=== PATIENT | female | born 1960 | race Caucasian/White ===

== ENCOUNTER 2019-02-12 10:55 | Outpatient (CLI) | payer BC ==
--- NOTE | 2019-02-12 11:15 | RAD ---
Radiograph left humerus 2 views: 02/12/2019 HISTORY: 58-year-old female with left arm pain. Malignant neoplasm of breast. FINDINGS: No permeative, osteolytic, or osteoblastic lesion. No periostitis. No fracture. Osteopenia. Surgical clips at axilla. IMPRESSION: 1. Osteopenia. 2. Left axillary lymph node dissection. 3. Otherwise negative.
--- NOTE | 2019-02-12 11:16 | RAD ---
Radiograph left shoulder 3 views: DATE: 02/12/2019 HISTORY: 58-year-old female with left breast cancer and left shoulder pain. FINDINGS: Left axillary surgical clips. No fracture, subluxation, or dislocation. Mild-moderate DJD at AC joint . Unremarkable glenohumeral joint. No destructive osseous lesion identified. IMPRESSION: 1. Mild-moderate osteoarthrosis of acromioclavicular joint. 2. Status post left axillary lymph node dissection. 3. Otherwise negative.
== END 2019-02-12 10:56 | disposition home or self-care (01) ==
LOC: BICRAD 10:55
PROVIDERS: ATTEND Internal Medicine Hematology & Oncology
DX: C50.212 Malignant neoplasm of upper-inner quadrant of left female breast (principal); M25.512 Pain in left shoulder; M79.602 Pain in left arm; M19.012 Primary osteoarthritis, left shoulder; Z98.890 Other specified postprocedural states; M85.80 Other specified disorders of bone density and structure, unspecified site

== ENCOUNTER 2019-06-18 13:43 | Outpatient (CLI) | payer BC ==
--- NOTE | 2019-06-18 14:16 | MMO ---
Right Breast MAMMO Unilat Diag DDI RT. CLINICAL HISTORY: Patient is 58 years old and is seen for diagnostic exam. The patient has no family history of breast cancer. The patient has a history of left Ultrasound Guided Core Biopsy in May, - invasive ductal carcinoma, left Mastectomy in May, - malignant and left Lumpectomy in April, - malignant. VIEWS: The views performed were: right craniocaudal with tomosynthesis; right mediolateral oblique with tomosynthesis; and right mediolateral with tomosynthesis. FILMS COMPARED: The present examination has been compared to prior imaging studies performed at [facility] on 05/14/2016, 05/17/2016, 06/03/2017 and 06/05/2018. This study has been interpreted with the assistance of computer-aided detection. MAMMOGRAM FINDINGS: There are scattered fibroglandular densities. There are stable benign appearing calcifications seen in the right breast. There are no suspicious masses, suspicious calcifications, or new areas of architectural distortion. IMPRESSION: THERE IS NO MAMMOGRAPHIC EVIDENCE OF MALIGNANCY. A ROUTINE FOLLOW-UP MAMMOGRAM IN 1 YEAR IS RECOMMENDED. THE RESULTS OF THIS EXAM WERE SENT TO THE PATIENT. ACR BI-RADS Category 2 - Benign finding MAMMOGRAPHY NOTE: 1. A negative mammogram report should not delay a biopsy if a dominant of clinically suspicious mass is present. 2. Approximately 10% to 15% of breast cancers are not detected by mammography. 3. Adenosis and dense breasts may obscure an underlying neoplasm. Reported by: AUTUMN ALAN MD Electonically Signed: [id number]
== END 2019-06-18 13:44 | disposition home or self-care (01) ==
LOC: BICMAMMO 13:43
PROVIDERS: ATTEND Internal Medicine Hematology & Oncology
DX: Z08 Encounter for follow-up examination after completed treatment for malignant neoplasm (principal); Z85.3 Personal history of malignant neoplasm of breast

== ENCOUNTER 2020-05-27 09:26 | Outpatient (CLI) | payer BC, OTHER ==
[2020-05-27 14:20] LABS: #Basophils 0.1 thou/uL (0.0-0.2); #Eosinphils 0.1 thou/uL (0.0-0.7); #Lymphocytes 2.4 thou/uL (1.20-3.40); #Monocytes 0.7 thou/uL (0.11-0.59); #Neutrophils 7.6 thou/uL (1.40-6.50); %Basophils 0.7 % (0.0-1.0); %Lymphocytes 21.9 % (21.0-51.0); %Monocytes 6.5 % (0.0-10.0); %Neutrophils 69.9 % (42.0-75.0); Hemoglobin 13.9 g/dL (12.0-16.0); Mean Corpuscular HGB CONC 32.9 g/dL (32.0-36.0); Mean Corpuscular Hemoglobin 31.1 pg (27.0-31.0); Mean Corpuscular Volume 94.3 fL (78.0-98.0); Mean Platelet Volume 8.5 fL (7.4-10.4); Platelet Count 308 thou/uL (130-400); RBC Distribution Width 11.2 % (11.5-14.5); Red Blood Cell (RBC) Count 4.48 mill/uL (4.20-5.40); White Blood Cell (WBC) Count 10.9 thou/uL (4.8-10.8)
[2020-05-27 14:42] LABS: ALT (SGPT) 21 U/L (8-55); AST (SGOT) 20 U/L (5-34); Albumin 4.5 g/dL (3.5-5.0); Alkaline Phosphatase 91 U/L (40-110); Anion Gap 15 mmol/L (10-20); BUN (Urea Nitrogen) 14 mg/dL (9.8-20.1); Bilirubin, Total 0.3 mg/dL (0.2-1.2); Calc. Creatinine Clearance 0 mL/min (70-130); Calcium 9.5 mg/dL (7.8-10.44); Carbon Dioxide 23 mmol/L (22-29); Chloride 107 mmol/L (98-107); Estimated GFR-MDRD 67; Globulin 2.3 g/dL (2.4-3.5); Glucose 114 mg/dL (70-105); Potassium 4.4 mmol/L (3.5-5.1); Protein, Total 6.8 g/dL (6.0-8.3); Sodium 141 mmol/L (136-145)
[2020-05-28 11:58] LABS: SARS-CoV-2 MS2 Positive; SARS-CoV-2 N Gene Negative; SARS-CoV-2 S Gene Negative; SARS-CoV-2 by NAA Not Detected (NotDetected); SARS-CoV-2 orf1ab Negative
== END 2020-05-27 09:27 | disposition home or self-care (01) ==
LOC: LABBT 09:26
PROVIDERS: ATTEND Surgery
DX: Z01.812 Encounter for preprocedural laboratory examination (principal); Z20.828 Contact with and (suspected) exposure to other viral communicable diseases; C50.912 Malignant neoplasm of unspecified site of left female breast
CPT/HCPCS: 80053; 85025; 87635; U0003

== ENCOUNTER 2020-05-30 05:51 | Day surgery (SDC) | payer BC ==
[2020-05-28 10:58] VITALS: BMI 25.0
[2020-05-30] MEDS ORDERED: Lidocaine 2% PF 5 ML VIAL ONE (07:37)
[2020-05-30] MEDS ORDERED: Bupivacaine HCl 0.5%/Epinephrine 1:200,000/PF 30 ml Vial ONE (07:37)
[2020-05-30] MEDS ORDERED: Fentanyl 100 MCG/2 ML VIAL ONE (07:44)
[2020-05-30] MEDS ORDERED: Midazolam HCl 2 mg/2 ml Vial ONE (07:44)
[2020-05-30] MEDS ORDERED: PROPOFOL 200 MG/20 ML VIAL ONE (14:03)
[2020-05-30] MEDS ORDERED: Dexamethasone 20 MG/5 ML VIAL ONE (14:03)
[2020-05-30] MEDS ORDERED: diphenhydrAMINE 50 MG/ML VIAL ONE (14:03)
[2020-05-30] MEDS ORDERED: Ketorolac Tromethamine 30 MG/ML VIAL ONE (14:03)
[2020-05-30] MEDS ORDERED: Ondansetron PF 4 MG/2 ML Vial ONE (14:03)
--- NOTE | 2020-06-01 07:35 | OP ---
DATE OF PROCEDURE: 05/30/2020 PREOPERATIVE DIAGNOSIS: Left breast cancer, chest wall recurrence. PROCEDURE PERFORMED: Wide local excision. INDICATIONS: A 59-year-old female who had undergone a left mastectomy for a high-grade invasive ductal carcinoma in 2016, who developed a recurrent nodule on the chest wall. She underwent a biopsy, thought was to be an excisional biopsy in the office, which came back with positive medial and lateral margins of high-grade poorly differentiated adenocarcinoma. FINDINGS: Tried to get a minimum of 2 cm margins medial and lateral, so the specimen was 4 cm wide x 10 cm long to include muscle deep. DESCRIPTION OF PROCEDURE: After informed consent was obtained, the patient was taken to the operating room and given general endotracheal anesthesia. She was placed in supine position. Her chest wall was prepped and draped in usual fashion. Local anesthesia was infiltrated subcutaneously and deep with 0.5% Marcaine. A wide elliptical incision was performed to include 2 cm medial and lateral as well as to excise the scar to include the muscle deep with electrocautery that was attached to the specimen. The specimen was marked with a suture superior. Hemostasis was achieved with electrocautery. Undermining was performed on the muscle to facilitate closure. The subcu was reapproximated with interrupted 2-0 Vicryl and the skin closed with interrupted vertical mattress sutures of 3-0 Prolene. A sterile bandage applied. The patient tolerated the procedure well, transferred to Recovery in good condition. Sponge and needle count verified correct x2. Job ID: [id number]
--- NOTE | 2020-06-01 12:48 | EKG ---
Test Reason : Blood Pressure : / mmHG Vent. Rate : 073 BPM Atrial Rate : 073 BPM P-R Int : 128 ms QRS Dur : 076 ms QT Int : 394 ms P-R-T Axes : 058 022 062 degrees QTc Int : 434 ms Normal sinus rhythm Normal ECG No previous ECGs available Confirmed by ASHLEY CHOWDARY MD ([id number]) on 06/01/2020 12:48:18 PM Referred By: MEREDITH Confirmed By:ASHLEY CHOWDARY MD
== END 2020-05-30 10:58 | disposition home or self-care (01) ==
LOC: SDC 05:51
PROVIDERS: ATTEND Surgery
PROC: 0HB5XZZ Excision of Chest Skin, External Approach (ICD-10-PCS; principal; 2020-05-30)
DX: C50.912 Malignant neoplasm of unspecified site of left female breast (principal); E78.2 Mixed hyperlipidemia; F17.210 Nicotine dependence, cigarettes, uncomplicated; R05 Cough; Z79.899 Other long term (current) drug therapy
CPT/HCPCS: 88305; 93005; 93010; J0670; J0690; J1100; J1200; J1885; J2250; J2405; J2704; J3010

== ENCOUNTER 2020-06-02 08:23 | Outpatient (CLI) | payer BC ==
[2020-06-02] MEDS ORDERED: Iopamidol 370 76% 100 ML VIAL ONE (08:49)
--- NOTE | 2020-06-02 10:27 | CT ---
CHEST CT WITH CONTRAST ABDOMEN CT WITH CONTRAST PELVIC CT WITH CONTRAST: HISTORY: Recurrent breast cancer. Chemotherapy. Radiation therapy. CORRELATION: None. FINDINGS: Chest CT: Mediastinum: No mass, lymphadenopathy or hematoma. There is a nonspecific prevascular lymph node ananth uring 1.3 x 0.5 cm. Aorta: Normal caliber. No aneurysm, dissection or periaortic fat stranding. Minimal atherosclerosis. Heart: Normal heart size. No significant pericardial effusion. Pulmonary arteries: Central pulmonary arteries do not demonstrate a filling defect. Limited evaluatio n due to technique. Chest wall: Postsurgical changes compatible with a left lumpectomy. Lymph nodes: No evidence of left or right axillary lymphadenopathy. There are surgical clips in the l eft axilla. Trachea and central bronchi: Patent. Pleural spaces: No pleural effusion. Right lung: Dependent atelectatic changes. Minimal thickening and nodularity involving the major fiss ure. Left lung:Pleural-based densities and linear densities along the left upper lobe likely representing posttreatment change. Pneumothorax: None. Abdomen CT: Gallbladder: Unremarkable. Portal vein: Patent. Liver: 1.3 x 1.8 cm in segment 5 of the liver compatible with a vascular lesion. No enhancing masses in the liver. Hypodensity in the 6th segment of the liver measures 1 cm with an attenuation coefficient of 5 Hounsfield units, compatible with a cyst.. Spleen: Appropriate enhancement. Pancreas: Appropriate enhancement. Adrenal glands: Appropriate enhancement. Lymphadenopathy: No gastrohepatic, retrocrural or periportal lymphadenopathy. Kidneys: Symmetric enhancement. Bilaterally no obstructive uropathy. Mesentery: No mass, lymphadenopathy, free air or free fluid. Alimentary canal: Gastric mucosa, duodenum and multiple normal caliber small bowel loops. Normal ileo cecal junction. Scattered fecal material and contrast in a nondistended, nondilated colon. Short segment of decreased luminal diameter likely representing contractions rather than apple core lesions of the colon. Normal caliber appendix. Pelvis CT: Uterus is surgically absent. No pelvic mass, nephropathy, free air or free fluid. Urinary bladder ness s a normal appearance. Presacral fat is preserved. Osseous structures: No lytic or blastic lesions in the osseous structures. Sclerosis involving the inferior aspect of the T4, T5, T6, T7, T8 and T9 vertebral bodies likely representing degenerative change. IMPRESSION: 1. No evidence of metastatic disease in the chest, abdomen or pelvis. 2. Nonspecific prevascular lymph node. 3. Postsurgical changes involving the left breast and left axilla. Transcribed Date/Time: 06/02/2020 11:34 AM
--- NOTE | 2020-06-02 12:52 | NM ---
NUCLEAR MEDICINE BONE SCAN WHOLE BODY: (Skeletal scintigraphy) DATE: 06/02/2020 HISTORY: 59-year-old female with malignant neoplasm of upper inner quadrant of left female breast TECHNIQUE: IV injection of technetium 99m-MDP: 33.0 mCi 3 hour delayed whole body skeletal scintigraphy in anterior and posterior views. FINDINGS: There are no foci of asymmetrically increased uptake that are particularly suspicious for bone metast ases. IMPRESSION: No compelling evidence of skeletal metastasis.
== END 2020-06-02 08:24 | disposition home or self-care (01) ==
LOC: CT 08:23
PROVIDERS: ATTEND Internal Medicine Hematology & Oncology
DX: C50.212 Malignant neoplasm of upper-inner quadrant of left female breast (principal); Z98.890 Other specified postprocedural states
CPT/HCPCS: 71260; 74177; 78306; A9503; Q9967

== ENCOUNTER 2020-06-23 09:08 | Outpatient (CLI) | payer BC ==
--- NOTE | 2020-06-23 09:42 | MMO ---
Right Breast MAMMO Unilat Diag DDI RT+DAQUAN. CLINICAL HISTORY: Patient is 59 years old and is seen for diagnostic exam. The patient has no family history of breast cancer. The patient has a history of left Excisional Biopsy in May, - malignant, left Ultrasound Guided Core Biopsy in May, - invasive ductal carcinoma, left Mastectomy in May, - malignant and left Lumpectomy in April, - malignant. VIEWS: The views performed were: right craniocaudal with tomosynthesis; right mediolateral oblique with tomosynthesis; and right mediolateral with tomosynthesis. FILMS COMPARED: The present examination has been compared to prior imaging studies performed at [facility] on 05/17/2016, 06/03/2017, 06/05/2018 and 06/18/2019. This study has been interpreted with the assistance of computer-aided detection. MAMMOGRAM FINDINGS: There are scattered fibroglandular densities. There are stable benign appearing calcifications seen in the right breast. There are no suspicious masses, suspicious calcifications, or new areas of architectural distortion. IMPRESSION: THERE IS NO MAMMOGRAPHIC EVIDENCE OF MALIGNANCY. A ROUTINE FOLLOW-UP MAMMOGRAM IN 1 YEAR IS RECOMMENDED. THE RESULTS OF THIS EXAM WERE SENT TO THE PATIENT. ACR BI-RADS Category 2 - Benign finding MAMMOGRAPHY NOTE: 1. A negative mammogram report should not delay a biopsy if a dominant of clinically suspicious mass is present. 2. Approximately 10% to 15% of breast cancers are not detected by mammography. 3. Adenosis and dense breasts may obscure an underlying neoplasm. Reported by: EBONIE ESPINAL MD Electonically Signed: [id number]
--- NOTE | 2020-06-23 09:53 | BD ---
EXAM: DEXA bone density examination HISTORY: 59-year-old postmenopausal female for screening COMPARISON: None FINDINGS: L1--bone mineral density 0.772 g/sq cm; T score -2.0 L2--bone mineral density 0.758 g/sq cm; T score -2.5 L3--bone mineral density 0.784 g/sq cm; T score -2.7 L4--bone mineral density 0.759 g/sq cm; T score -2.7 Total L1-L4--bone mineral density 0.768 g/sq cm; T score -2.5 Left femoral neck--bone mineral density0.599; T score -2.3 Total proximal left femur--bone mineral density 0.786; T score -1.3 IMPRESSION: Osteoporosis.
== END 2020-06-23 09:09 | disposition home or self-care (01) ==
LOC: BICMAMMO 09:08
PROVIDERS: ATTEND Family Medicine
DX: Z08 Encounter for follow-up examination after completed treatment for malignant neoplasm (principal); Z85.3 Personal history of malignant neoplasm of breast; M81.0 Age-related osteoporosis without current pathological fracture
CPT/HCPCS: 77080; G0279

== ENCOUNTER 2021-06-25 09:16 | Outpatient (CLI) | payer BC | END 2021-06-25 09:17 | disposition home or self-care (01) | LOC: BICMAMMO 09:16 | PROVIDERS: ATTEND Family Medicine | DX: Z08 Encounter for follow-up examination after completed treatment for malignant neoplasm (principal); Z85.3 Personal history of malignant neoplasm of breast | CPT/HCPCS: G0279 ==

== ENCOUNTER 2021-09-16 09:40 | Outpatient (CLI) | payer BC | END 2021-09-16 09:41 | disposition home or self-care (01) | LOC: BICMAMMO 09:40 | PROVIDERS: ATTEND Internal Medicine Hematology & Oncology | DX: M81.8 Other osteoporosis without current pathological fracture (principal); M85.851 Other specified disorders of bone density and structure, right thigh; M85.852 Other specified disorders of bone density and structure, left thigh | CPT/HCPCS: 77080 ==

== ENCOUNTER 2022-06-29 07:57 | Outpatient (CLI) | payer BC | END 2022-06-29 07:58 | disposition home or self-care (01) | LOC: BICMAMMO 07:57 | PROVIDERS: ATTEND Internal Medicine Hematology & Oncology | DX: N64.89 Other specified disorders of breast (principal); Z85.3 Personal history of malignant neoplasm of breast; Z90.12 Acquired absence of left breast and nipple | CPT/HCPCS: G0279 ==

== ENCOUNTER 2022-09-17 09:35 | Outpatient (CLI) | payer BC | END 2022-09-17 09:36 | disposition home or self-care (01) | LOC: BICMAMMO 09:35 | PROVIDERS: ATTEND Internal Medicine Hematology & Oncology | DX: M81.8 Other osteoporosis without current pathological fracture (principal); C50.212 Malignant neoplasm of upper-inner quadrant of left female breast; M85.89 Other specified disorders of bone density and structure, multiple sites | CPT/HCPCS: 77080 ==

== ENCOUNTER 2023-06-30 13:09 | Outpatient (CLI) | payer BC | END 2023-06-30 13:10 | disposition home or self-care (01) | LOC: BICMAMMO 13:09 | PROVIDERS: ATTEND Family Medicine | DX: Z08 Encounter for follow-up examination after completed treatment for malignant neoplasm (principal); Z85.3 Personal history of malignant neoplasm of breast | CPT/HCPCS: G0279 ==

== ENCOUNTER 2023-11-11 10:18 | Outpatient (CLI) | payer BC | END 2023-11-11 10:19 | disposition home or self-care (01) | LOC: BICMAMMO 10:18 | PROVIDERS: ATTEND Internal Medicine Hematology & Oncology | DX: M81.8 Other osteoporosis without current pathological fracture (principal); M85.89 Other specified disorders of bone density and structure, multiple sites | CPT/HCPCS: 77080 ==

== ENCOUNTER 2024-07-02 07:18 | Outpatient (CLI) | payer BC | END 2024-07-02 07:19 | disposition home or self-care (01) | LOC: BICCT 07:18 | PROVIDERS: ATTEND Family Medicine | DX: Z12.2 Encounter for screening for malignant neoplasm of respiratory organs (principal); F17.210 Nicotine dependence, cigarettes, uncomplicated; J43.2 Centrilobular emphysema; R91.1 Solitary pulmonary nodule; Z90.12 Acquired absence of left breast and nipple | CPT/HCPCS: 71271 ==

== ENCOUNTER 2024-07-02 08:38 | Outpatient (CLI) | payer BC | END 2024-07-02 08:39 | disposition home or self-care (01) | LOC: BICMAMMO 08:38 | PROVIDERS: ATTEND Family Medicine | DX: Z08 Encounter for follow-up examination after completed treatment for malignant neoplasm (principal); Z85.3 Personal history of malignant neoplasm of breast | CPT/HCPCS: G0279 ==